=== PATIENT | female | born 1985 | race African-American/Black ===

== ENCOUNTER 2016-08-18 17:07 | Emergency (ER) | payer OTHER ==
[2016-08-18 17:40] VITALS: BP 115/93
[2016-08-18] MEDS ORDERED: Ofloxacin 0.3% OTIC.SOL* 5 ML BTL BOTH EARS ONE (18:05)
[2016-08-18] MEDS ORDERED: Ofloxacin 0.3% OTIC.SOL* 5 ML BTL ONE (18:07)
== END 2016-08-18 18:21 | disposition home or self-care (01) ==
LOC: ED 17:07
DX: H60.90 Unspecified otitis externa, unspecified ear (principal)
CPT/HCPCS: 99282; A9270-GY

== ENCOUNTER 2016-08-25 15:11 | Emergency (ER) | payer OTHER ==
[2016-08-25 15:52] VITALS: BP 97/58
--- NOTE | 2016-08-25 16:51 | UC ---
Complaint Female HPI - HPI Summary HPI Summary: 7 DAYS OF DYSURIA, FREQUENCY AND URGENCY. NO FEVER BUT DOES C/O SOME MILD BACK PAIN AND NAUSEA. WAS TAKING AZO BUT RAN OUT 2 DAYS AGO. REPORTS FREQUENT UTI - EVERY FEW MONTHS. ALSO C/O 3 DAYS OF THROBBING URRUTIA BEHIND HER EYES WITH PHOTOPHOBIA, PHONOPHOBIA. NO VISUAL DISTURBANCES. HAS MIGRAINE URRUTIA. USUALLY TAKES TYLENOL OR IBUPROFEN WITH GOOD SUCCESS BUT DID NOT HAVE ANY AT HOME. - History Of Current Complaint Chief Complaint: UCGU Stated Complaint: UTI SYMPTOMS Time Seen by Provider: 08/25/16 16:42 Hx Obtained From: Patient Hx Last Menstrual Period: 07/07/16 Onset/Duration: Gradual Onset, Lasting Days, Still Present Timing: Constant Severity Initially: Moderate Severity Currently: Moderate Pain Intensity: 8 Pain Scale Used: 0-10 Numeric Character: Burning Aggravating Factor(s): Urination Alleviating Factor(s): Nothing Associated Signs And Symptoms: Positive: Back Pain, Nausea. Negative: Fever, Vaginal Discharge - Allergies/Home Medications Allergies/Adverse Reactions: Allergies Allergy/AdvReac Type Severity Reaction Status Date / Time Penicillins Allergy Unknown Unknown Verified 08/25/16 15:52 Reaction Details Home Medications: Home Medications Sertraline* [Zoloft*] 08/25/16 [History] PMH/Surg Hx/FS Hx/Imm Hx - Additional Past Medical History Additional PMH: SLEEP APNEA Endocrine History Of: Denies: Diabetes, Thyroid Disease, Hyperthyroidism, Hypothyroidism, Dyslipidemia Cardiovascular History Of: Denies: Cardiac Disorders, Hypertension, Pacemaker/ICD, Myocardial Infarction , Congestive Heart Failure, Atrial Fibrillation, Deep Vein Thrombosis, Bleeding Disorders Respiratory History Of: Denies: COPD, Asthma, Bronchitis, Pneumonia, Pulmonary Embolism GI/ History Of: Denies: Gastroesophageal Reflux, Ulcer, Gastrointestinal Bleed, Gall Bladder Disease, Kidney Stones, Diverticulitis, Renal Disease, Urosepsis Neurological History Of: Denies: TIA, CVA, Dementia, Seizures, Migraine Psychological History Of: Reports: Anxiety, Depression Denies: Bipolar Disorder, Schizophrenia, Post Traumatic Stress Disorder Cancer History Of: Denies: Lung Cancer, Colorectal Cancer, Breast Cancer, Prostate Cancer, Cervical Cancer Other History Of: Negative For: HIV, Hepatitis B, Hepatitis C, Anticoagulant Therapy - Surgical History Surgical History: Yes Surgery Procedure, Year, and Place: Tubal ligation Apr 2014 - Family History Known Family History: Positive: Diabetes Negative: Cardiac Disease, Hypertension - Social History Alcohol Use: Occasionally Substance Use Type: None Smoking Status (MU): Former Smoker - Immunization History Most Recent Influenza Vaccination: 2014 Review of Systems Constitutional: Negative Eyes: Photophobia Respiratory: Negative Cardiovascular: Negative Gastrointestinal: Negative Genitourinary: Dysuria, Frequency, Urgency Neurological: Headache All Other Systems Reviewed And Are Negative: Yes Physical Exam Triage Information Reviewed: Yes Appearance: Well-Appearing, No Pain Distress, Well-Nourished Vital Signs: Initial Vital Signs Temp 98.2 F 08/25/16 15:47 Pulse 73 08/25/16 15:47 Resp 12 08/25/16 15:47 BP 97/58 08/25/16 15:47 Pulse Ox 100 08/25/16 15:47 Vital Signs Reviewed: Yes Eyes: Positive: Conjunctiva Clear, Other: - PERRL. EOMI ENT: Positive: Hearing grossly normal Neck: Positive: Supple, Nontender, No Lymphadenopathy Respiratory: Positive: No respiratory distress, No accessory muscle use Cardiovascular: Positive: Pulses Normal Abdomen Description: Positive: Soft, Other: - MILD SUPRAPUBIC TENDERNESS. Negative: CVA Tenderness (R), CVA Tenderness (L), Distended, Guarding Musculoskeletal: Positive: No Edema Neurological: Positive: Alert Psychological: Positive: Age Appropriate Behavior Skin: Negative: rashes Diagnostics - Laboratory Diagnostic Studies Completed/Ordered: URINE DIP SP. GR 1.015, 1+ LEUKS, TRACE BLOOD Complaint Female Dx - Differential Dx/Diagnosis Provider Diagnoses: 1. UTI. 2. MIGRAINE Discharge - Discharge Plan Condition: Stable Disposition: HOME Prescriptions: Ibuprofen TAB* [Motrin TAB* 800 MG] 800 mg PO Q8H PRN #30 tab PRN Reason: Pain Sulfamethox/Trimethoprim DS* [Bactrim DS 800/160 TAB*] 1 tab PO BID #10 tab Patient Education Materials: Urinary Tract Infection in Women (ED), Migraine Headache (ED) Referrals: Ebenezer Darling MD [Primary Care Provider] - If Needed Additional Instructions: WE HAVE SENT YOUR URINE FOR CULTURE AND WILL CALL YOU IF WE NEED TO CHANGE YOUR MEDICATION. GET ENOUGH REST AND STAY HYDRATED.
[2016-08-25] MEDS ORDERED: Ibuprofen TAB* 400 MG PO ONE (16:52)
== END 2016-08-25 17:05 | disposition home or self-care (01) ==
LOC: UCEAST 15:11
DX: N39.0 Urinary tract infection, site not specified (principal); G43.909 Migraine, unspecified, not intractable, without status migrainosus; Z88.0 Allergy status to penicillin; Z87.891 Personal history of nicotine dependence
CPT/HCPCS: 81003; 87086; 87798; 99212; A9270-GY; G0463

== ENCOUNTER 2017-01-27 14:31 | Emergency (ER) | payer OTHER ==
[2017-01-27 15:24] VITALS: BP 140/85
--- NOTE | 2017-01-29 09:47 | UC ---
Complaint Female HPI - HPI Summary HPI Summary: 31 YEAR OLD FEMALE PRESENTS WITH URINARY FREQUENCY, URGENCY AND BACK PAIN. - History Of Current Complaint Chief Complaint: UCGU Stated Complaint: URINARY ISSUE Time Seen by Provider: 01/27/17 15:51 Hx Obtained From: Patient Hx Last Menstrual Period: 01/04/17 Onset/Duration: Sudden Onset Timing: Constant Severity Initially: Moderate Severity Currently: Moderate Pain Intensity: 4 Pain Scale Used: 0-10 Numeric Character: Sharp, Burning, Cramping Associated Signs And Symptoms: Positive: Back Pain - Allergies/Home Medications Allergies/Adverse Reactions: Allergies Allergy/AdvReac Type Severity Reaction Status Date / Time Penicillins Allergy Unknown Unknown Verified 01/27/17 15:23 Reaction Details PMH/Surg Hx/FS Hx/Imm Hx Other History Of: Negative For: HIV, Hepatitis B, Hepatitis C, Anticoagulant Therapy - Surgical History Surgical History: Yes Surgery Procedure, Year, and Place: Tubal ligation Apr 2014 - Family History Known Family History: Positive: Diabetes Negative: Cardiac Disease, Hypertension - Social History Alcohol Use: Occasionally Substance Use Type: None Smoking Status (MU): Current Some Day Smoker - Immunization History Most Recent Influenza Vaccination: 2014 Review of Systems Constitutional: Negative Skin: Negative Eyes: Negative ENT: Negative Respiratory: Negative Cardiovascular: Negative Gastrointestinal: Negative Genitourinary: Dysuria, Frequency, Urgency Motor: Negative Neurovascular: Negative Musculoskeletal: Negative Neurological: Negative Psychological: Negative All Other Systems Reviewed And Are Negative: Yes Physical Exam Triage Information Reviewed: Yes Vital Signs: Initial Vital Signs Temp 37.2 C 01/27/17 15:18 Pulse 75 01/27/17 15:18 Resp 18 01/27/17 15:18 BP 140/85 01/27/17 15:18 Pulse Ox 96 01/27/17 15:18 Eye Exam: Normal ENT Exam: Normal Dental Exam: Normal Neck exam: Normal Neck: Positive: 1 Respiratory Exam: Normal Cardiovascular Exam: Normal Abdominal Exam: Normal Musculoskeletal Exam: Normal Neurological Exam: Normal Psychological Exam: Normal Skin Exam: Normal Complaint Female Dx - Differential Dx/Diagnosis Provider Diagnoses: URINARY FREQUENCY. URINARY URGENCY Discharge - Discharge Plan Condition: Stable Disposition: HOME Prescriptions: Nitrofurantoin Monohyd Macro [Macrobid] 100 mg PO BID #14 cap Patient Education Materials: Urinary Tract Infection in Women (ED) Referrals: Ebenezer Darling MD [Primary Care Provider] - If Needed
== END 2017-01-27 16:08 | disposition home or self-care (01) ==
LOC: UCEAST 14:31
DX: R35.0 Frequency of micturition (principal); R39.15 Urgency of urination; M54.5 Low back pain; Z88.0 Allergy status to penicillin; F17.200 Nicotine dependence, unspecified, uncomplicated
CPT/HCPCS: 81003; 81025; 87086; 99212; G0463

== ENCOUNTER 2017-04-04 09:59 | Emergency (ER) | payer OTHER ==
[2017-04-04] MEDS ORDERED: Ondansetron INJ* 2 MG/ML VIAL IV ONE (11:22)
[2017-04-04] MEDS ORDERED: Ketorolac INJ* 30 MG/ML 1 ML VIAL IV ONE (11:22)
[2017-04-04] MEDS ORDERED: Meclizine TAB* 12.5 MG PO ONE (11:22)
[2017-04-04] MEDS: NS 0.9% 1000 ML* 2,000 ML IV ONE (11:45)
[2017-04-04 11:58] LABS: Hematocrit 42 % (35-47); Hemoglobin 13.5 g/dl (12.0-16.0); Mean Corpuscular HGB Conc 33 g/dl (31-36); Mean Corpuscular Hemoglobin 27 pg (27-31); Mean Corpuscular Volume 83 fL (80-97); Mean Platelet Volume 8 um3 (7.4-10.4); Red Blood Count 5.03 10^6/ul (4.0-5.4); Red Cell Distribution Width 14 % (10.5-15); White Blood Count 5.1 10^3/ul (3.5-10.8)
[2017-04-04 12:13] LABS: ALT 18 U/L (7-52); AST 13 U/L (13-39); Albumin 4.3 g/dL (3.2-5.2); Alkaline Phosphatase 72 U/L (34-104); Anion Gap 7 mmol/L (2-11); BUN/Creatinine Ratio 22.9 (8-20); Blood Urea Nitrogen 16 mg/dL (6-24); C Reactive Protein 3.95 mg/L (< 5.00); CO2 Carbon Dioxide 23 mmol/L (22-32); Calcium 9.4 mg/dL (8.6-10.3); Chloride 104 mmol/L (101-111); EGFR African American 124.7 (>60); Globulin 3.3 g/dL (2-4); Glucose 82 mg/dL (70-100); Lipase 18 U/L (11.0-82.0); Potassium 3.8 mmol/L (3.5-5.0); Sodium 134 mmol/L (133-145); Total Protein 7.6 g/dL (6.4-8.9)
[2017-04-04 13:33] LABS: Urine Bilirubin Negative (Negative); Urine Glucose Negative (Negative); Urine Nitrite Negative (Negative)
--- NOTE | 2017-04-04 14:16 | ED ---
Mili Duke Edward, scribed for Rick Morgan MD on 04/04/17 at 1105 . Dizziness - HPI Summary HPI Summary: 31 y/o female presents to the ED c/o dizziness described as mild room spinning and lightheadedness starting a couple of days ago. Pt also c/o eye pain, blurred vision, neck pain at the back of the neck, body aches, and photophobia. These symptoms started three days ago that worsened yesterday. The URRUTIA and dizziness are aggravated when she stands up. The pt states there was rhinorrhea and a sore throat at first that has resolved. Associated sx: subjective fever and chills, ear ache, N/V (1x yesterday), ABD pain described as cramps, cough. Pt states that when she coughs she feels something moving in her ABD in the periumbilical region. Denies diarrhea. LNMP last month (irregular period). Pt states her daughter has a mild cough at home. Sx tubal ligation. - History Of Current Complaint Chief Complaint: EDDizziness Stated Complaint: BODY ACHES/DIZZY Time Seen by Provider: 04/04/17 11:04 Hx Obtained From: Patient Onset/Duration: Still Present Timing: Constant Severity Initially: Mild Severity Currently: Moderate Character: Lightheaded, Dizzy Aggravating Factor(s): Supine To Erect Alleviating Factor(s): Nothing Associated Signs And Symptoms: Positive: Nausea, Vomiting, Unsteady Gait, Fever , Chills, Other: - blurred vision, eye pain, neck pain, URRUTIA, sore throat, rhinorrhea, ear pain, ABD pain, cough, photophobia. Negative: Diarrhea - Allergies/Home Medications Allergies/Adverse Reactions: Allergies Allergy/AdvReac Type Severity Reaction Status Date / Time Penicillins Allergy Unknown Unknown Verified 01/27/17 15:23 Reaction Details PMH/Surg Hx/FS Hx/Imm Hx Previously Healthy: No Endocrine/Hematology History: Denies: Hx Anticoagulant Therapy, Hx Diabetes, Hx Thyroid Disease Cardiovascular History: Denies: Hx Congestive Heart Failure, Hx Deep Vein Thrombosis, Hx Hypertension , Hx Myocardial Infarction, Hx Pacemaker/ICD Respiratory History: Denies: Hx Asthma, Hx Chronic Obstructive Pulmonary Disease (COPD), Hx Lung Cancer, Hx Pneumonia, Hx Pulmonary Embolism GI History: Denies: Hx Gall Bladder Disease, Hx Gastrointestinal Bleed, Hx Ulcer, Hx Urosepsis History: Denies: Hx Kidney Stones, Hx Renal Disease Neurological History: Denies: Hx Dementia, Hx Migraine, Hx Seizures, Hx Transient Ischemic Attacks (TIA) Psychiatric History: Reports: Hx Anxiety, Hx Depression Denies: Hx Schizophrenia, Hx Bipolar Disorder, Hx Substance Abuse - Surgical History Surgery Procedure, Year, and Place: Tubal ligation Apr 2014 Infectious Disease History: No Infectious Disease History: Denies: Hx Clostridium Difficile, Hx Hepatitis, Hx Human Immunodeficiency Virus (HIV), Hx of Known/Suspected MRSA, Hx Shingles, Hx Tuberculosis, Hx Known/ Suspected VRE, Hx Known/Suspected VRSA, History Other Infectious Disease, Traveled Outside the [place] in Last 30 Days - Family History Known Family History: Positive: Diabetes Negative: Cardiac Disease, Hypertension - Social History Alcohol Use: Occasionally Substance Use Type: Reports: None Smoking Status (MU): Current Some Day Smoker Review of Systems Positive: Fever, Chills, Other - Body aches Positive: Photophobia, Blurred Vision, Other - eye pain ENT: Other - rhinorrhea Positive: Sore Throat, Ear Ache Cardiovascular: Negative Positive: Cough Positive: Abdominal Pain, Vomiting, Nausea. Negative: Diarrhea Genitourinary: Negative Positive: Myalgia - neck pain Skin: Negative Neurological: Other - dizziness Positive: Headache Psychological: Normal All Other Systems Reviewed And Are Negative: Yes Physical Exam Triage Information Reviewed: Yes Vital Signs On Initial Exam: Initial Vitals Temp Pulse Resp BP Pulse Ox 97.1 F 99 20 115/83 100 04/04/17 10:00 04/04/17 10:00 04/04/17 10:00 04/04/17 10:00 04/04/17 10:00 Vital Signs Reviewed: Yes Appearance: Positive: No Pain Distress, Ill-Appearing - mildly Skin: Positive: Warm, Skin Color Reflects Adequate Perfusion, Dry Head/Face: Positive: Normal Head/Face Inspection Eyes: Positive: EOMI, RAMA ENT: Positive: Normal ENT inspection Neck: Positive: Supple, Nontender Respiratory/Lung Sounds: Positive: Clear to Auscultation, Breath Sounds Present Cardiovascular: Positive: RRR Abdomen Description: Positive: Nontender, Soft Bowel Sounds: Positive: Present Musculoskeletal: Positive: Normal, Strength/ROM Intact Neurological: Positive: Normal, Sensory/Motor Intact, Alert, Oriented to Person Place, Time Psychiatric: Positive: Affect/Mood Appropriate Diagnostics - Vital Signs Vital Signs Temp Pulse Resp BP Pulse Ox 04/04/17 10:00 97.1 F 99 20 115/83 100 - Laboratory Lab Results: Lab Results 04/04/17 04/04/17 04/04/17 Range/Units 11:32 11:32 11:32 WBC 5.1 (3.5-10.8) 10^3/ul RBC 5.03 (4.0-5.4) 10^6/ul Hgb 13.5 (12.0-16.0) g/dl Hct 42 (35-47) % MCV 83 (80-97) fL MCH 27 (27-31) pg MCHC 33 (31-36) g/dl RDW 14 (10.5-15) % Plt Count 286 (150-450) 10^3/ul MPV 8 (7.4-10.4) um3 Neut % (Auto) 57.4 (38-83) % Lymph % (Auto) 31.5 (25-47) % [place] % (Auto) 8.8 (1-9) % Eos % (Auto) 1.5 (0-6) % Baso % (Auto) 0.8 (0-2) % Absolute Neuts (auto) 2.9 (1.5-7.7) 10^3/ul Absolute Lymphs (auto) 1.6 (1.0-4.8) 10^3/ul Absolute Monos (auto) 0.4 (0-0.8) 10^3/ul Absolute Eos (auto) 0.1 (0-0.6) 10^3/ul Absolute Basos (auto) 0 (0-0.2) 10^3/ul Absolute Nucleated RBC 0.01 10^3/ul Nucleated RBC % 0.1 Sodium 134 (133-145) mmol/L Potassium 3.8 (3.5-5.0) mmol/L Chloride 104 (101-111) mmol/L Carbon Dioxide 23 (22-32) mmol/L Anion Gap 7 (2-11) mmol/L BUN 16 (6-24) mg/dL Creatinine 0.70 (0.51-0.95) mg/dL Est GFR ( Amer) 124.7 (>60) Est GFR (Non-Af Amer) 97.0 (>60) BUN/Creatinine Ratio 22.9 H (8-20) Glucose 82 (70-100) mg/dL Lactic Acid 0.7 (0.5-2.0) mmol/L Calcium 9.4 (8.6-10.3) mg/dL Total Bilirubin 0.40 (0.2-1.0) mg/dL AST 13 (13-39) U/L ALT 18 (7-52) U/L Alkaline Phosphatase 72 (34-104) U/L C-Reactive Protein 3.95 (< 5.00) mg/L Total Protein 7.6 (6.4-8.9) g/dL Albumin 4.3 (3.2-5.2) g/dL Globulin 3.3 (2-4) g/dL Albumin/Globulin Ratio 1.3 (1-3) Lipase 18 (11.0-82.0) U/L Beta HCG, Quant < 0.60 mIU/mL Urine Color Urine Appearance Urine pH (5-9) Ur Specific [place] (1.010-1.030) Urine Protein (Negative) Urine Ketones (Negative) Urine Blood (Negative) Urine Nitrate (Negative) Urine Bilirubin (Negative) Urine Urobilinogen (Negative) Ur Leukocyte Esterase (Negative) Urine Glucose (Negative) Influenza A (Rapid) (Negative) Influenza B (Rapid) (Negative) 04/04/17 04/04/17 Range/Units 12:06 13:10 WBC (3.5-10.8) 10^3/ul RBC (4.0-5.4) 10^6/ul Hgb (12.0-16.0) g/dl Hct (35-47) % MCV (80-97) fL MCH (27-31) pg MCHC (31-36) g/dl RDW (10.5-15) % Plt Count (150-450) 10^3/ul MPV (7.4-10.4) um3 Neut % (Auto) (38-83) % Lymph % (Auto) (25-47) % [place] % (Auto) (1-9) % Eos % (Auto) (0-6) % Baso % (Auto) (0-2) % Absolute Neuts (auto) (1.5-7.7) 10^3/ul Absolute Lymphs (auto) (1.0-4.8) 10^3/ul Absolute Monos (auto) (0-0.8) 10^3/ul Absolute Eos (auto) (0-0.6) 10^3/ul Absolute Basos (auto) (0-0.2) 10^3/ul Absolute Nucleated RBC 10^3/ul Nucleated RBC % Sodium (133-145) mmol/L Potassium (3.5-5.0) mmol/L Chloride (101-111) mmol/L Carbon Dioxide (22-32) mmol/L Anion Gap (2-11) mmol/L BUN (6-24) mg/dL Creatinine (0.51-0.95) mg/dL Est GFR ( Amer) (>60) Est GFR (Non-Af Amer) (>60) BUN/Creatinine Ratio (8-20) Glucose (70-100) mg/dL Lactic Acid (0.5-2.0) mmol/L Calcium (8.6-10.3) mg/dL Total Bilirubin (0.2-1.0) mg/dL AST (13-39) U/L ALT (7-52) U/L Alkaline Phosphatase (34-104) U/L C-Reactive Protein (< 5.00) mg/L Total Protein (6.4-8.9) g/dL Albumin (3.2-5.2) g/dL Globulin (2-4) g/dL Albumin/Globulin Ratio (1-3) Lipase (11.0-82.0) U/L Beta HCG, Quant mIU/mL Urine Color Yellow Urine Appearance Clear Urine pH 5.0 (5-9) Ur Specific [place] 1.026 (1.010-1.030) Urine Protein Negative (Negative) Urine Ketones Negative (Negative) Urine Blood Negative (Negative) Urine Nitrate Negative (Negative) Urine Bilirubin Negative (Negative) Urine Urobilinogen Negative (Negative) Ur Leukocyte Esterase Negative (Negative) Urine Glucose Negative (Negative) Influenza A (Rapid) Negative (Negative) Influenza B (Rapid) Negative (Negative) Result Diagrams: 04/04/17 11:32 04/04/17 11:32 Lab Statement: Any lab studies that have been ordered have been reviewed, and results considered in the medical decision making process. Re-Evaluation - Re-Evaluation 1 Re-Evaluation Time: 13:10 Change: Improved - Discuss test results and findings. Comment: Discuss test results and findings. Waiting on urine 2 Re-Evaluation Time: 14:08 Comment: Discuss plan of care Dizzy Course/Dx - Course Course Of Treatment: IMPROVED IN ED. DISCUSSED RESULTS WITH PATIENT. NO EVIDENCE OF BACTERIAL INFECTION AT THIS TIME THEREFORE, NO ABX RX NOW. WILL TREAT SYMPTOMS. F/U WITH PMD; RETURN IF WORSE. - Diagnoses Provider Diagnoses: Dizziness, Lightheaded, Nausea Discharge - Discharge Plan Condition: Stable Disposition: HOME Prescriptions: Ibuprofen TAB* [Motrin TAB* 600 MG] 600 mg PO Q6H PRN #20 tab PRN Reason: Pain Meclizine HCl [Meclizine 25] 25 mg PO Q6H PRN #15 tab PRN Reason: Dizziness Ondansetron ODT TAB* [Zofran 4 MG Odt TAB*] 4 mg PO Q6H PRN #10 tab.odt PRN Reason: Nausea Patient Education Materials: Dizziness (ED), Lightheadedness (ED), Acute Nausea and Vomiting (ED) Referrals: Ebenezer Darling MD [Primary Care Provider] - Additional Instructions: FOLLOW UP WITH YOUR DOCTOR. RETURN TO THE EMERGENCY DEPARTMENT FOR ANY WORSENING OF YOUR CONDITION OR QUESTIONS OR CONCERNS. The documentation as recorded by the Mili hahn Edward accurately reflects the service I personally performed and the decisions made by me, Rick Morgan MD.
[2017-04-04 14:26] VITALS: BP 103/65
== END 2017-04-04 14:25 | disposition home or self-care (01) ==
LOC: ED 09:59
DX: R42 Dizziness and giddiness (principal); R11.2 Nausea with vomiting, unspecified; R50.9 Fever, unspecified; Z72.0 Tobacco use; R05 Cough
CPT/HCPCS: 36415; 80053; 81003; 83605; 83690; 84702; 85025; 86140; 87502; 96374; 99283; A9270-GY; J1885; J2405

== ENCOUNTER 2017-04-19 15:53 | Emergency (ER) | payer OTHER ==
[2017-04-19 16:13] VITALS: BP 104/76
--- NOTE | 2017-04-19 20:20 | UC ---
Cardiac HPI - HPI Summary HPI Summary: 31 y/o female with c/o b/l breast pain, tenderness, with one episode of nipple discharge from L breast, small drop of clear fluid x 1 week. denies , tubal ligation after 3rd child. Denies vision changes, headache. + feeling tired, weak. no PMH thyroid disease, endocrine issues, no prior breast pain/ drainage before, no fever, chills, feeling ill. no recent surgery/ trauma. + increased pain with shortness of breath on breasts, feels like "pulling" sensation. - History of Current Complaint Hx Obtained From: Patient Hx Last Menstrual Period: tubal Onset/Duration: Sudden Onset, Lasting Days Timing: Constant Pain Intensity: 8 Aggravating Factor(s): Position, Movement Alleviating Factor(s): Rest, Position Associated Signs & Symptoms: Positive: Chest Pain <Jane Vo - Last Filed: 04/20/17 23:32> <Valorie Tadeo - Last Filed: 04/21/17 08:23> - History of Current Complaint Chief Complaint: UCGeneralIllness Stated Complaint: BREASTS PAIN Time Seen by Provider: 04/19/17 16:57 - Allergy/Home Medications Allergies/Adverse Reactions: Allergies Allergy/AdvReac Type Severity Reaction Status Date / Time Penicillins Allergy Unknown Unknown Verified 04/19/17 16:10 Reaction Details PMH/Surg Hx/FS Hx/Imm Hx Previously Healthy: Yes Other History Of: Negative For: HIV, Hepatitis B, Hepatitis C, Anticoagulant Therapy - Surgical History Surgical History: Yes Surgery Procedure, Year, and Place: Tubal ligation Apr 2014 - Family History Known Family History: Positive: Diabetes Negative: Cardiac Disease, Hypertension - Social History Alcohol Use: Occasionally Substance Use Type: None Smoking Status (MU): Current Some Day Smoker - Immunization History Most Recent Influenza Vaccination: 2014 <Jane Vo - Last Filed: 04/20/17 23:32> Review of Systems Constitutional: Fatigue Skin: Other Genitourinary: Other - breast pain b/l with nipple discharge from L x 1 Is Patient Immunocompromised?: No All Other Systems Reviewed And Are Negative: Yes <Jane Vo - Last Filed: 04/20/17 23:32> Physical Exam Triage Information Reviewed: Yes Appearance: Well-Appearing, No Pain Distress, Well-Nourished Vital Signs: Initial Vital Signs Temp 36.3 C 04/19/17 16:11 Pulse 87 04/19/17 16:11 Resp 18 04/19/17 16:11 BP 104/76 04/19/17 16:11 Pulse Ox 100 04/19/17 16:11 Vital Signs Reviewed: Yes Eyes: Positive: Conjunctiva Clear Neck: Positive: Supple, Nontender, No Lymphadenopathy Respiratory: Positive: Chest non-tender, Lungs clear, Normal breath sounds, No respiratory distress, No accessory muscle use. Negative: Respiratory distress, Decreased breath sounds, Accessory muscle use, Crackles, Rhonchi, Stridor, Wheezing, Expiration, Inspiration Cardiovascular: Positive: RRR, No Murmur, Pulses Normal - upper/ lower radial, PT 2+ B/L Abdomen Description: Positive: Nontender, No Organomegaly, Soft, Bruit. Negative: CVA Tenderness (R), CVA Tenderness (L) Musculoskeletal: Positive: ROM Intact - b/l LEs Skin Exam: Normal Skin: Positive: Other - no LAD b/l axillary, breast examination b/l negative for masses, lesions, no open wounds, sores, no nipple discharge at baseline or with expression for areola. tenderness to deep palpation of breast tissue b/ l. no skin changes, no warmth, no induration. <Jane Vo - Last Filed: 04/20/17 23:32> Vital Signs: Initial Vital Signs Temp 97.3 F 04/19/17 16:11 Pulse 87 04/19/17 16:11 Resp 18 04/19/17 16:11 BP 104/76 04/19/17 16:11 Pulse Ox 100 04/19/17 16:11 <Valorie Tadeo - Last Filed: 04/21/17 08:23> - Assessment/Plan Course Of Treatment: neg blood drawn for prolactin, TSH, cbc, cmp, follow up with primary for imaging- mammography within 5-7 days. wil and discussed with DR. Tadeo. - Differential Diagnoses - Chest Pain Differential Diagnosis/HQI/PQRI: Acute FL, Angina, Aortic Aneurysm - Clinical Impression Provider Diagnoses: breast pain b/l. <Jane Vo - Last Filed: 04/20/17 23:32> Discharge <Jane Vo - Last Filed: 04/20/17 23:32> <Valorie Tadeo - Last Filed: 04/21/17 08:23> - Discharge Plan Condition: Good Disposition: HOME Patient Education Materials: Nipple Discharge (ED) Referrals: Ebenezer Darling MD [Primary Care Provider] - Additional Instructions: - Follow up with primary physician- imaging needed to evaluate breast tissue, such as mammogram. Follow up with dr within 7 days - Tylenol/ motrin as needed for pain - Blood work drawn we will call with abnormalities within 48-72 hours, please contact if you would like results. - ED Addendum Addendum: Asked by HIRAM to eval pt Pt presents with progressive bilateral breast pain and burning over 2 weeks. Pt states breasts feels full and "bloated" . Pt states feels similar to when was . Pt states had very small amount clearish/white fliuid from left nipple. No recurrence. no bleeding. No skin changes. No redness. Pt states has not been wearing bra as breasts are sensitive. No h/o trauma. No fever, chills , rash. No salazar, vision changes. No n/v/d. No cp, sob, abd pain. No headache. No changes to menstrual cycle. No discharge, itching, odor. No h.o similar no other complaints. No new lotions, product, detergents A+Ox3, pleasant, NAD RAMA, EOM intact and full TM x2 clear mmmoist no exudate CTA throughout no w/r RRR nl s1, s2 no m/r/r abd soft + BS no guarding no rebound Pt with pendulous breasts bilateral symmetric - no dimpling ,retractions of nipple or skin Pt with dense breast tissue on exam - no masses identified. No pain with exam No masses or irregularities palpation to axilla no lymphadenopathy b/l axilla Pt with no concerning exam without acute findings I had a long discussion with patient regarding breast pain and differential causes. This includes but is not limited to , hormone irregularities,thyroid, tumors Will draw labs today Pt recommended to follow closely with PCP or field placement director - pt has both providers Pt comfortable and in agreement with plan questions answered d/w JULIAN <Valorie Tadeo - Last Filed: 04/21/17 08:23> Addendum entered and electronically signed by Jane Vo PA 04/20/17 23: 32: UC Addendum Addendum: Dx bilateral breast pain, nipple discharge left
[2017-04-20 11:09] LABS: Hematocrit 39 % (35-47); Hemoglobin 12.4 g/dl (12.0-16.0); Mean Corpuscular HGB Conc 32 g/dl (31-36); Mean Corpuscular Hemoglobin 27 pg (27-31); Mean Corpuscular Volume 84 fL (80-97); Mean Platelet Volume 8 um3 (7.4-10.4); Red Blood Count 4.63 10^6/ul (4.0-5.4); Red Cell Distribution Width 14 % (10.5-15); White Blood Count 6.2 10^3/ul (3.5-10.8)
[2017-04-20 11:35] LABS: TSH (Thyroid Stimulating Horm) 2.43 mcIU/mL (0.34-5.60)
[2017-04-20 11:41] LABS: Prolactin 1.3 ng/mL (1.0-25.0)
[2017-04-20 20:13] LABS: ALT 31 U/L (7-52); AST 19 U/L (13-39); Albumin 4.4 g/dL (3.2-5.2); Alkaline Phosphatase 70 U/L (34-104); Anion Gap 12 mmol/L (2-11); BUN/Creatinine Ratio 23.5 (8-20); Blood Urea Nitrogen 16 mg/dL (6-24); CO2 Carbon Dioxide 18 mmol/L (22-32); Calcium 9.4 mg/dL (8.6-10.3); Chloride 109 mmol/L (101-111); EGFR Non-African American 100.3 (>60); Globulin 2.8 g/dL (2-4); Glucose 116 mg/dL (70-100); Potassium 4.2 mmol/L (3.5-5.0); Sodium 139 mmol/L (133-145); Total Protein 7.2 g/dL (6.4-8.9)
--- NOTE | 2017-04-21 07:54 | ED ---
Course/Dx - Diagnoses Provider Diagnoses: Breast pain
== END 2017-04-19 18:25 | disposition home or self-care (01) ==
LOC: UCEAST 15:53
DX: N64.4 Mastodynia (principal); N64.52 Nipple discharge; R53.83 Other fatigue; Z32.02 Encounter for pregnancy test, result negative; Z88.0 Allergy status to penicillin; Z72.0 Tobacco use
CPT/HCPCS: 36415; 80053; 81003; 84146; 84443; 84702; 85027; 99211; G0463

== ENCOUNTER 2017-05-12 22:41 | Emergency (ER) | payer OTHER ==
[2017-05-12 23:31] LABS: Urine Appearance Clear; Urine Blood Negative (Negative); Urine Color Yellow; Urine Ketones Negative (Negative); Urine Protein Negative (Negative); Urine Urobilinogen Negative (Negative)
[2017-05-13 02:01] VITALS: BP 111/51
--- NOTE | 2017-05-13 07:40 | RAD ---
INDICATION: Left flank pain COMPARISON: None TECHNIQUE: Noncontrast axial source images were acquired from the level hemidiaphragms to the symphysis pubis as part of CT imaging for renal stone. Lung bases: The lung bases are clear. Liver: The liver is normal in size. Noncontrast imaging shows no evidence of a hepatic mass or ductal dilatation. Gallbladder: The gallbladder is partially contracted and there are multiple gallstones. There is no pericholecystic fluid. Spleen: The spleen is normal in size. The noncontrast CT appearance is normal. Pancreas: Noncontrast imaging shows no pancreatic mass or ductal dilitation. Adrenal glands: No masses are identified. Kidneys/Bladder: There is no evidence of nephrolithiasis or CT evidence of hydronephrosis. Noncontrast imaging shows no evidence of a renal mass. The bladder is unremarkable.. Adenopathy: There is no evidence of intraperitoneal or retroperitoneal adenopathy. Evaluation is limited without oral contrast. Fluid collections: There are no free or localized fluid collections. Vessels: The aorta and iliac vessels are normal in caliber. There are no significant atherosclerotic changes. The IVC appears normal Pelvic organs: The uterus and right adnexa are normal. There is a thick walled 6.1 cm left adnexal cyst. Suggest follow-up pelvic sonography. GI tract: Evaluation of the bowel is limited without oral contrast. The stomach, small bowel, and lower GI tract appear grossly normal. There is ingested material within the stomach. There are no obstructive findings. The appendix is visualized and appears normal. Soft tissues: There is a moderate-sized periumbilical hernia containing fat the neck of the hernia measures 1.6 cm and the hernia sac approximately 5 x 3 cm. Osseous structures: There are no acute osseous findings. IMPRESSION: 1. Partially contracted gallbladder with multiple gallstones. 2. 6.1 cm left adnexal cyst. Suggest follow-up pelvic sonography. 3. Fat-containing periumbilical hernia.
--- NOTE | 2017-06-09 22:48 | ED ---
Julia Duke Alfonso, scribed for Abdi Le MD on 05/12/17 at 2351 . Abdominal Pain/Female - HPI Summary HPI Summary: This patient is a 31 year old F presenting to [facility] with a chief complaint of left flank pain radiating to stomach since 1 week ago. She visited her PCP today, who referred her to the ED to r/o kidney stone and ectopic . The patient rates the pain 10/10 in severity. Symptoms aggravated by nothing Symptoms alleviated by rocking position. Patient reports N/V. Patient denies fevers, chills, and hematuria. Her last BM was normal. LMP beginning of last month. She had lab work drawn earlier today which showed a negative urinalysis, beta HCG, and CBC. - History of Current Complaint Chief Complaint: EDFlankPain Stated Complaint: LT FLANK PAIN Hx Obtained From: Patient Hx Last Menstrual Period: tubal ?: No Onset/Duration: Gradual Onset, Lasting Weeks - 1, Still Present Timing: Constant Severity Currently: Severe Pain Intensity: 10 Pain Scale Used: 0-10 Numeric Location: Flank - L Radiates: Yes Radiates to: Other - "stomach" Aggravating Factor(s): Nothing Alleviating Factor(s): Other: - "rocking" position Associated Signs and Symptoms: Positive: Other: - N/V. Patient denies fevers, chills, hematuria. Allergies/Adverse Reactions: Allergies Allergy/AdvReac Type Severity Reaction Status Date / Time Penicillins Allergy Unknown Unknown Verified 05/12/17 22:49 Reaction Details PMH/Surg Hx/FS Hx/Imm Hx Endocrine/Hematology History: Denies: Hx Anticoagulant Therapy, Hx Diabetes, Hx Thyroid Disease Cardiovascular History: Denies: Hx Congestive Heart Failure, Hx Deep Vein Thrombosis, Hx Hypertension , Hx Myocardial Infarction, Hx Pacemaker/ICD Respiratory History: Denies: Hx Asthma, Hx Chronic Obstructive Pulmonary Disease (COPD), Hx Lung Cancer, Hx Pneumonia, Hx Pulmonary Embolism GI History: Denies: Hx Gall Bladder Disease, Hx Gastrointestinal Bleed, Hx Ulcer, Hx Urosepsis History: Denies: Hx Kidney Stones, Hx Renal Disease Neurological History: Denies: Hx Dementia, Hx Migraine, Hx Seizures, Hx Transient Ischemic Attacks (TIA) Psychiatric History: Reports: Hx Anxiety, Hx Depression Denies: Hx Schizophrenia, Hx Bipolar Disorder, Hx Substance Abuse - Surgical History Surgery Procedure, Year, and Place: Tubal ligation Apr 2014 Infectious Disease History: No Infectious Disease History: Denies: Hx Clostridium Difficile, Hx Hepatitis, Hx Human Immunodeficiency Virus (HIV), Hx of Known/Suspected MRSA, Hx Shingles, Hx Tuberculosis, Hx Known/ Suspected VRE, Hx Known/Suspected VRSA, History Other Infectious Disease, Traveled Outside the [place] in Last 30 Days - Family History Known Family History: Positive: Diabetes Negative: Cardiac Disease, Hypertension - Social History Alcohol Use: Occasionally Hx Substance Use: No Substance Use Type: Reports: None Hx Tobacco Use: Yes Smoking Status (MU): Current Some Day Smoker Review of Systems Negative: Fever, Chills Positive: Abdominal Pain, Vomiting, Nausea Negative: hematuria All Other Systems Reviewed And Are Negative: Yes Physical Exam - Summary Physical Exam Summary: Appearance: Well-appearing, Well-nourished, obese, distress but pausing with no apparent distress in between. Skin: Warm, Dry, No rash Eyes: Normal, PERRL, EOMI, sclera anicteric ENT: Normal Neck: Supple, nontender Respiratory: Clear to auscultation Cardiovascular: S1, S2, no murmur, no rub, no gallop Abdomen: Soft, nontender, no organomegaly Bowel sounds: Present Musculoskeletal: Normal, Strength/ROM Intact, no edema, pulses symmetrical Neurological: Normal, A&Ox3, cranial nerves II-XII WNL, follows commands, gait not tested, sensation intact to pin and light touch Psychiatric: affect normal, behavior appropriate, dressed appropriately, judgment intact Triage Information Reviewed: Yes Vital Signs On Initial Exam: Initial Vitals Temp Pulse Resp BP Pulse Ox 98.0 F 115 20 127/56 98 05/12/17 22:44 05/12/17 22:44 05/12/17 22:44 05/12/17 22:44 05/12/17 22:44 Vital Signs Reviewed: Yes Diagnostics - Vital Signs Vital Signs Temp Pulse Resp BP Pulse Ox 05/12/17 22:44 98.0 F 115 20 127/56 98 - Laboratory Lab Results: Lab Results 05/12/17 Range/Units 23:16 Urine Color Yellow Urine Appearance Clear Urine pH 5.0 (5-9) Ur Specific [place] 1.020 (1.010-1.030) Urine Protein Negative (Negative) Urine Ketones Negative (Negative) Urine Blood Negative (Negative) Urine Nitrate Negative (Negative) Urine Bilirubin Negative (Negative) Urine Urobilinogen Negative (Negative) Ur Leukocyte Esterase Negative (Negative) Urine Glucose Negative (Negative) Lab Statement: Any lab studies that have been ordered have been reviewed, and results considered in the medical decision making process. - CT A/P CT Interpretation Completed By: Radiologist - Negative for right or left urinary tract stone or obstruction. Large amount of ingested material in the stomach. No bowel obstruction, free air, or free fluid. Negative for diverticulitis or colitis. Normal appendix visualized. Ventral/periumbilical hernia containing omentum and some fluid but no bowel. There is a 6.2 cm x 3.7 cm slightly thick walled left adnexal cyst. In order to make sure that it is a simple cyst and not complex cyst or other lesion, US may be helpful. Normal liver. Positive for cholelithiasis in a contracted gallbladder. ED physician has reviewed this radiology report and agrees. Abdominal Pain Fem Course/Dx - Course Course Of Treatment: Patient will be discharged with prescription for Zofran and follow up from PCP. The patient is agreeable with this plan. - Diagnoses Provider Diagnoses: Ovarian cyst Discharge - Discharge Plan Condition: Good Disposition: HOME Prescriptions: Ondansetron [Zofran 4 MG Odt] 4 mg PO Q6HR 7 Days #12 tab Patient Education Materials: Ovarian Cyst (ED) Forms: *Work Release Referrals: Ebenezer Darling MD [Primary Care Provider] - Additional Instructions: follow up with primary regarding dilated stomach and left sided cyst The documentation as recorded by the Julia hahn Alfonso accurately reflects the service I personally performed and the decisions made by , Abdi Le MD.
== END 2017-05-13 02:10 | disposition home or self-care (01) ==
LOC: ED 22:41
DX: N83.209 Unspecified ovarian cyst, unspecified side (principal); R11.2 Nausea with vomiting, unspecified; R10.84 Generalized abdominal pain; Z72.0 Tobacco use
CPT/HCPCS: 74176; 81003; 99282

== ENCOUNTER 2017-08-10 10:07 | Emergency (ER) | payer OTHER ==
[2017-08-10 10:48] VITALS: BP 128/99
--- NOTE | 2017-08-10 11:23 | UC ---
FLU HPI - HPI Summary HPI Summary: 4 DAYS OF SUBJECTIVE FEVER, CHILLS, COUGH, DECREASED ENERGY, EAR PAIN, URRUTIA, NAUSEA AND BODY ACHES. SEVERAL EPISODES LOOSE STOOLS. UTD FLU SHOT. DAUGHTER WITH SIMILAR SX. - History of Current Complaint Chief Complaint: UCGeneralIllness Stated Complaint: BODYACHES COUGH EAR PAIN HEADACHES Time Seen by Provider: 08/10/17 10:55 Hx Obtained From: Patient Hx Last Menstrual Period: 07/20/17 Onset/Duration: Gradual Onset, Lasting Days, Still Present Severity Currently: Moderate Severity Initially: Moderate Pain Intensity: 10 - appears fatigued but in no acute distress Pain Scale Used: 0-10 Numeric Associated Signs & Symptoms: Positive: Fever, Myalgia, Cough, Nasal Congestion, Headache, Diarrhea - Allergy/Home Medications Allergies/Adverse Reactions: Allergies Allergy/AdvReac Type Severity Reaction Status Date / Time Penicillins Allergy Unknown Unknown Verified 08/10/17 10:41 Reaction Details Home Medications: Home Medications Sertraline HCl [Zoloft] 100 mg PO DAILY 08/10/17 [History Confirmed 08/10/17] PMH/Surg Hx/FS Hx/Imm Hx Previously Healthy: Yes Other History Of: Negative For: HIV, Hepatitis B, Hepatitis C, Anticoagulant Therapy - Surgical History Surgical History: Yes Surgery Procedure, Year, and Place: Tubal ligation Apr 2014 - Family History Known Family History: Positive: Hypertension, Diabetes Negative: Cardiac Disease - Social History Alcohol Use: Occasionally Substance Use Type: None Smoking Status (MU): Former Smoker Type: Cigarettes - Immunization History Most Recent Influenza Vaccination: 2014 Review of Systems Constitutional: Fever, Chills, Fatigue ENT: Ear Ache, Nasal Discharge Respiratory: Cough Cardiovascular: Negative Gastrointestinal: Diarrhea Musculoskeletal: Myalgia Neurological: Headache All Other Systems Reviewed And Are Negative: Yes Physical Exam Triage Information Reviewed: Yes Appearance: No Pain Distress, Well-Nourished, Ill-Appearing - mildly Vital Signs: Initial Vital Signs Temp 98.7 F 08/10/17 10:43 Pulse 77 08/10/17 10:43 Resp 16 08/10/17 10:43 BP 128/99 08/10/17 10:43 Pulse Ox 97 08/10/17 10:43 Vital Signs Reviewed: Yes Eyes: Positive: Conjunctiva Clear ENT: Positive: Hearing grossly normal, Pharynx normal Neck: Positive: Supple, Nontender, No Lymphadenopathy Respiratory Exam: Normal Cardiovascular Exam: Normal Abdomen Description: Positive: Soft Musculoskeletal: Positive: No Edema Neurological: Positive: Alert Psychological: Positive: Normal Response To Family, Age Appropriate Behavior Skin: Negative: rashes Diagnostics - Laboratory Diagnostic Studies Completed/Ordered: FLU NEG Flu Course/Dx - Course Course Of Treatment: PT REQUESTING TAMIFLU - Differential Dx/Diagnosis Provider Diagnoses: ACUTE VIRAL SYNDROME Discharge - Discharge Plan Condition: Stable Disposition: HOME Prescriptions: Oseltamivir CAP* [Tamiflu CAP*] 75 mg PO BID #10 cap Patient Education Materials: Cerumen Impaction (ED), Viral Syndrome (ED) Forms: *Gen. Provider Communication Referrals: Ebenezer Darling MD [Primary Care Provider] - If Needed Additional Instructions: FLU SWAB NEGATIVE. GIVEN YOUR FLU-LIKE SYMPTOMS WILL COVER WITH TAMIFLU TWICE DAILY FOR 5 DAYS. OTC MEDS NEEDED FOR FEVER, BODY ACHES. STAY WELL HYDRATED AND RESTED. SEEK FOLLOW-UP IF YOU ARE NOT IMPROVING EXPECTED.
== END 2017-08-10 12:20 | disposition home or self-care (01) ==
LOC: UCEAST 10:07
DX: B34.9 Viral infection, unspecified (principal); Z88.0 Allergy status to penicillin; Z87.891 Personal history of nicotine dependence
CPT/HCPCS: 87502; 99213; G0463

== ENCOUNTER → 2018-03-14 16:53 | Emergency (ER) | payer OTHER ==
[~2018-03-14 16:53] MED LIST: Iohexol 300* (CONTRAST) 10 ML SDV IV ONE; Ketorolac INJ* 30 MG/ML 1 ML VIAL IV PUSH ONE; oxyCODONE/Acetamin 5/325 MG* TAB PO ONE
[2018-03-14 19:47] LABS: ABS Basophils 0 10^3/ul (0-0.2); ABS Eosinophils 0 10^3/ul (0-0.6); ABS Lymphocytes 1.8 10^3/ul (1.0-4.8); ABS Monocytes 0.3 10^3/ul (0-0.8); ABS Neutrophils 3.3 10^3/ul (1.5-7.7); ABS Nucleated RBC 0 10^3/ul; Eosinophil % 0.7 % (0-6); Hematocrit 40 % (35-47); Hemoglobin 13.1 g/dl (12.0-16.0); Lymphocyte % 32.9 % (25-47); Mean Corpuscular HGB Conc 33 g/dl (31-36); Mean Corpuscular Hemoglobin 27 pg (27-31); Mean Corpuscular Volume 83 fL (80-97); Mean Platelet Volume 7.6 um3 (7.4-10.4); Nucleated Red Blood Cells % 0.2; Platelet Count 283 10^3/ul (150-450); Red Cell Distribution Width 14 % (10.5-15); White Blood Count 5.6 10^3/ul (3.5-10.8)
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
[2018-03-14 22:11] VITALS: BP 123/62
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
--- NOTE | 2018-03-15 08:12 | RAD ---
Indication: Right ankle pain. 3 views of the right ankle demonstrates no fracture. Ankle mortise is intact. Posterior and inferior calcaneal spurring is noted. IMPRESSION: No fracture is identified. Posterior and inferior calcaneal spur are noted. R0
== END | disposition home or self-care (01) ==
LOC: ED 16:53
DX: R07.89 Other chest pain (principal); R10.9 Unspecified abdominal pain; M54.9 Dorsalgia, unspecified; Z87.891 Personal history of nicotine dependence; V43.52XA Car driver injured in collision with other type car in traffic accident, initial encounter; Y92.9 Unspecified place or not applicable
CPT/HCPCS: 36415; 71260; 72110; 74177; 80053; 84702; 85025; 99282; A9270-GY; J1885; Q9967

== ENCOUNTER 2018-03-15 13:24 | Emergency (ER) | payer OTHER ==
[2018-03-15 13:38] VITALS: BP 117/69
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
== END 2018-03-15 15:45 | disposition home or self-care (01) ==
LOC: UCEAST 13:24
DX: M54.5 Low back pain (principal); M54.6 Pain in thoracic spine; R20.0 Anesthesia of skin; F41.9 Anxiety disorder, unspecified; F32.9 Major depressive disorder, single episode, unspecified; Z88.0 Allergy status to penicillin; Z87.891 Personal history of nicotine dependence
CPT/HCPCS: 99212; G0463

== ENCOUNTER 2018-03-19 08:33 | Emergency (ER) | payer OTHER ==
[2018-03-19 08:56] VITALS: BP 124/64
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
== END 2018-03-19 09:40 | disposition home or self-care (01) ==
LOC: UCEAST 08:33
DX: S39.012A Strain of muscle, fascia and tendon of lower back, initial encounter (principal); V49.9XXA Car occupant (driver) (passenger) injured in unspecified traffic accident, initial encounter; Y92.9 Unspecified place or not applicable; Z88.0 Allergy status to penicillin; Z87.891 Personal history of nicotine dependence; Z79.891 Long term (current) use of opiate analgesic
CPT/HCPCS: 99212; G0463

== ENCOUNTER 2019-02-14 18:35 | Emergency (ER) | payer OTHER ==
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
--- NOTE | 2019-02-14 20:45 | UC ---
Complaint Female HPI - HPI Summary HPI Summary: 3 DAYS OF DYSURIA, FREQUENCY AND URGENCY. FEELS LIKE UTI SYMPTOMS. NO FEVER, BACK PAIN, NAUSEA. ALSO COMPLAINING OF SEVERAL WEEKS OF VAGINAL BURNING, IRRITATION AND WHITE DISCHARGE. STATES SHE WAS SEEN BY HER COMMISSIONED FIRE OFFICER 2 WEEKS AGO AND TREATED FOR A YEAST INFECTION WITH DIFLUCAN X 3 DAYS AND VAGINAL CREAM. SHE STATES THE SYMPTOMS ARE NOT IMPROVING. - History Of Current Complaint Chief Complaint: UCGU Stated Complaint: ABD PAIN, SKIN BREAKOUT Time Seen by Provider: 02/14/19 20:16 Hx Obtained From: Patient Hx Last Menstrual Period: [id number] Onset/Duration: Gradual Onset, Lasting Days, Still Present Timing: Constant Severity Initially: Moderate Severity Currently: Moderate Pain Intensity: 10 Pain Scale Used: 0-10 Numeric Character: Burning Aggravating Factor(s): Urination Alleviating Factor(s): Nothing Associated Signs And Symptoms: Positive: Vaginal Discharge. Negative: Fever, Back Pain - Allergies/Home Medications Allergies/Adverse Reactions: Allergies Allergy/AdvReac Type Severity Reaction Status Date / Time Penicillins Allergy Unknown Unknown Verified 02/14/19 18:55 Reaction Details PMH/Surg Hx/FS Hx/Imm Hx Previously Healthy: Yes Other History Of: Negative For: HIV, Hepatitis B, Hepatitis C, Anticoagulant Therapy - Surgical History Surgical History: Yes Surgery Procedure, Year, and Place: Tubal ligation Apr 2014 - Family History Known Family History: Positive: Hypertension, Diabetes Negative: Cardiac Disease - Social History Alcohol Use: Occasionally Substance Use Type: None Substance Use Comment - Amount & Last Used: was on prescribed pain med-ran out Smoking Status (MU): Former Smoker Type: Cigarettes - Immunization History Most Recent Influenza Vaccination: 2014 Review of Systems All Other Systems Reviewed And Are Negative: Yes Constitutional: Positive: Negative Respiratory: Positive: Negative Cardiovascular: Positive: Negative Gastrointestinal: Positive: Negative Genitourinary: Positive: Dysuria, Frequency, Urgency, Vaginal/Penile Burning, Vaginal/Penile Discharge Physical Exam Triage Information Reviewed: Yes Appearance: Well-Appearing, No Pain Distress, Well-Nourished Vital Signs: Initial Vital Signs Temp 97.6 F 02/14/19 18:50 Pulse 72 02/14/19 18:50 Resp 18 02/14/19 18:50 BP 122/83 02/14/19 18:50 Pulse Ox 100 02/14/19 18:50 Laboratory Tests 02/14/19 19:47 POC Ur Test Negative Vital Signs Reviewed: Yes Eyes: Positive: Conjunctiva Clear ENT: Positive: Hearing grossly normal Neck: Positive: Supple Respiratory: Positive: No respiratory distress, No accessory muscle use Cardiovascular: Positive: Pulses Normal Abdomen Description: Positive: Soft Musculoskeletal: Positive: No Edema Neurological: Positive: Alert Psychological: Positive: Age Appropriate Behavior Skin: Negative: Rashes Complaint Female Dx - Course Course Of Treatment: WILL TREAT PATIENT EMPIRICALLY FOR UTI BASED ON HER SYMPTOMS. URINE HAS BEEN SENT FOR CULTURE. DISCUSSED REPEAT PELVIC EXAM AND SWABS FOR VAGINITIS. PATIENT STATES SHE WILL FOLLOW-UP WITH HER COMMISSIONED FIRE OFFICER FOR THIS AND DECLINES PELVIC EXAM TODAY. SHE HAS ALSO HAD A DIFFUSE ITCHY RASH FOR SEVERAL MONTHS. WILL REFER TO DERMATOLOGY. - Differential Dx/Diagnosis Provider Diagnosis: UTI (urinary tract infection), Dermatitis Discharge ED - Sign-Out/Discharge Documenting (check all that apply): Patient Departure All imaging exams completed and their final reports reviewed: No Studies - Discharge Plan Condition: Stable Disposition: HOME Prescriptions: Phenazopyridine TAB* [Pyridium TAB*] 200 mg PO TID #6 tab Sulfamethox/Trimethoprim DS* [Bactrim DS 800/160 TAB*] 1 tab PO BID #9 tab Patient Education Materials: Urinary Tract Infection in Women (ED), Dermatitis (ED) Referrals: Shadi Sin, [facility]ISTERED NURSE [facility] [Primary Care Provider] - Additional Instructions: WILL TREAT FOR PRESUMPTIVE UTI BASED ON YOUR SYMPTOMS. TAKE THE ANTIBIOTIC TWICE DAILY FOR THE FULL 5 DAYS. YOUR URINE HAS BEEN SENT FOR CULTURE AND WE WILL CALL YOU IF YOUR MEDICATION NEEDS TO BE CHANGED. FOLLOW UP WITH YOUR COMMISSIONED FIRE OFFICER TO FURTHER DISCUSS YOUR PERSISTENT VAGINITIS. CALL DERMATOLOGY TO SCHEDULE AN APPOINTMENT FOR EVALUATION OF YOUR RASH. DERMATOLOGY IN [place] DR. SIM MOORE (DOES NOT SEE PTS ON MONDAYS OR TUESDAYS) [facility], [facility] [address]; [address] [place] [address] Dr. Lainey Licona Address: [address] [place] [address] DR. MIKO JEWELL, DR. EDNA [facility] [address] [place] [address] [address] IN [place] [address] Dominique Flowers DERMATOLOGY IN [place] DR. MIKO JEWELL [phone] - Billing Disposition and Condition Condition: STABLE Disposition: Home
[2019-02-14] MEDS ORDERED: Sulfamethox/Trimethoprim DS 800/160* TAB PO ONE (20:58)
[2019-02-14] MEDS ORDERED: Phenazopyridine TAB* 100 MG PO ONE (21:21)
[2019-02-14 21:31] VITALS: BP 125/81
== END 2019-02-14 21:29 | disposition home or self-care (01) ==
LOC: UCEAST 18:35
DX: N39.0 Urinary tract infection, site not specified (principal); L30.9 Dermatitis, unspecified; Z87.891 Personal history of nicotine dependence; Z88.0 Allergy status to penicillin
CPT/HCPCS: 84702; 87077; 87086; 87186; 99212; A9270-GY; G0463